=== PATIENT | female | born 1965 | race Caucasian/White ===

== ENCOUNTER 2016-05-14 14:33 | Outpatient (CLI) | payer MEDICAID ==
[~2016-05-14 14:33] MED LIST: ACTONEL150 MG PO; ACTONEL5 MG PO; BACLOFEN 10MG T10 MG PO; BENADRYL 25MG C25 MG PO; CALCARB 600 W/V1 TAB PO; CALCIUM + D 6001 TAB PO; CIPROFLOXACIN500 MG OR; CYMBALTA60 MG PO; FLEXERIL10 MG PO; HYDROCODONE1 TABLET PO; IBUPROFEN800 MG PO; LEXAPRO 20 MG T20 MG PO; LEXAPRO20 MG PO; LORTAB 500 MG-71 TAB PO; METFORMIN 500M500 MG PO; METFORMIN500 MG PO; MOBIC15 MG PO; MULTI VITAMINS1 TAB PO; MULTIVITAMIN1 TA1 PO; NAPROSYN 500MG500 MG PO; PHENERGAN 25MG.25 M1 PO; PLAQUENIL200 MG PO; PREDNISONE 10MG10 MG PO; PREDNISONE 20MG20 MG PO
[2016-05-14 14:45] VITALS: BP 126/74
[2016-06-04] MEDS ORDERED: INVOKANA300 MG PO (11:16)
[2016-06-04] MEDS ORDERED: NEURONTIN 300M300 MG PO (11:17)
[2016-06-04] MEDS ORDERED: EFFEXOR XR 75MG75 MG PO (11:17)
[2016-06-04] MEDS ORDERED: NEURONTIN100 MG PO (11:17)
[2016-06-04] MEDS ORDERED: ZYRTEC ALLERGY10 MG PO (11:17)
== END 2016-05-14 14:51 | disposition home or self-care (01) ==
LOC: COP 14:33
DX: I87.2 Venous insufficiency (chronic) (peripheral) (principal); Z45.2 Encounter for adjustment and management of vascular access device
CPT/HCPCS: J1642